=== PATIENT | female | born 1940 | race Caucasian/White ===

== ENCOUNTER 2017-04-07 21:15 | Emergency (ER) | payer MEDICARE ==
[~2017-04-07] VITALS: Ht 167.6 cm; Wt 62.9 kg
[~2017-04-07 21:15] MED LIST: ASPI81TA82 PO; CALC600T12 PO; CENTTAB9 PO; COZA50TA PO; CRAN500C2 PO; ESTR1 PO; FISH1360 PO; FLAX1200 PO; MACR100C PO; OCUTTAB2 PO; OXYBXL5 PO; PRIL20CA PO; PROB1TAB PO
[2017-04-07 21:20] VITALS: BP 183/79; PULSE 77; RESP 20; TEMP 97.7; O2SAT 97
[2017-04-07] MEDS ORDERED: OMEGCAP PO (21:39)
[2017-04-07] MEDS ORDERED: OCUVTAB PO (21:39)
[2017-04-07] MEDS ORDERED: OXYB5TAB8 PO (21:39)
[2017-04-07] MEDS ORDERED: CRANCAP2 PO (21:39)
[2017-04-07] MEDS ORDERED: ESTR1 PO (21:39)
[2017-04-07] MEDS ORDERED: OMEP20TA93 PO (21:39)
[2017-04-07] MEDS ORDERED: LOSA50TA PO (21:39)
[2017-04-07] MEDS ORDERED: ACET-822 PO (21:39)
[2017-04-07] MEDS ORDERED: ESCI5TAB PO (21:39)
[2017-04-07] MEDS ORDERED: ASPI81CH6 CHEW (21:39)
[2017-04-07] MEDS ORDERED: HYDR50TA94 PO (22:13)
[2017-04-07] MEDS ORDERED: IBUP1TAB7 PO (22:13)
--- NOTE | 2017-04-07 22:23 | PD ---
HPI . Fire ant bites Chief Complaint: Bite or Sting Time Seen by Provider: 22:10 Travel History International Travel<30 days: No Contact w/Intl Traveler<30days: No Traveled to known affect area: No History of Present Illness HPI Patient presents with chief complaint fire ant bites. She was bitten yesterday. The bites are on her right foot and ankle. She treated it at home last night with topical Benadryl and ibuprofen. She has also used ice. Despite that, she has continued itching and swelling. 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) Cardiovascular Problems: No High Cholesterol: No Chest Pain: No Diabetes: No Diminished Hearing: No Endocrine: No GERD: Yes Genitourinary: Yes Hepatitis: No Hiatal Hernia: No Hypertension: Yes Immune Disorder: No Medical other: Yes (ARTHRITIS) Musculoskeletal: Yes (compressed discs) Neurologic: No Psychiatric: No Reproductive: Yes (hysterectomy because of bleeding) Respiratory: No Immunizations Current: Yes Thyroid Disease: No Tetanus Vaccination: Unknown Influenza Vaccination: Yes ?: Not Menopausal: Yes Past Surgical History Abdominal Surgery: Yes (HERNIA REPAIR) Eye Surgery: Yes Genitourinary Surgery: Yes (BLADDER SUSPENSION 1973) Hysterectomy: Yes (FEB 2012) Oral Surgery: Yes Pacemaker: No Thoracic Surgery: Yes (RIGHT BREAST TUMOR REMOVED, BEGNI) Tonsillectomy: Yes Other Surgery: Yes (TUMOR RIGHT BREAST 1956 BENIGN, SKIN CA SQUAMOUS 2006) Social History Alcohol Use: Yes (2 DLY) Tobacco Use: No Substance Use: No Allergies-Medications (Allergen,Severity, Reaction): Coded Allergies: Sulfa (Sulfonamide Antibiotics) (Unverified Allergy, Severe, RASH, 04/07/17 ) ciprofloxacin (Unverified Allergy, Severe, Anaphylaxis, 04/07/17) amoxicillin (Verified Allergy, Unknown, ITCHING, 04/07/17) Reported Meds & Prescriptions Reported Meds & Active Scripts Active Ibuprofen 800 Mg Tab 800 Mg PO Q8H PRN Hydroxyzine HCl 50 Mg Tab 50 Mg PO QID PRN Reported Carmi-3 Fish Oil/Vitamin (Fish Oil-Cholecalciferol) 1,000-1,000 Mg Cap 1 Cap PO DAILY Aspirin Low Dose (Aspirin) 81 Mg Chew 81 Mg CHEW DAILY Cranberry Urinary Comfort (Vitamins C & E) 1 Cap 1 Cap PO DAILY Escitalopram (Escitalopram Oxalate) 5 Mg Tab 5 Mg PO DAILY Tylenol Extra Strength (Acetaminophen) 500 Mg Tablet 1 Tab PO PRN Omeprazole 20 Mg Tab 20 Mg PO DAILY Ocuvite (Multiple Vitamins W/ Minerals) 1 Tab 1 Tab PO DAILY Ditropan (Oxybutynin Chloride) 5 Mg Tab 5 Mg PO Q12HR Losartan (Losartan Potassium) 50 Mg Tab 50 Mg PO DAILY Estrace (Estradiol) 1 Mg Tab 1 Mg PO DAILY Review of Systems Except as stated in HPI: all other systems reviewed are Neg Skin: Positive Rash, Positive Itching Physical Exam Narrative GENERAL: Awake and alert and in no acute distress. SKIN: Warm and dry. She has erythematous lesions on her right foot and lower leg compatible with an bites. She does have some diffuse swelling of her lower leg. HEAD: Normocephalic/atraumatic. EYES: Pupils are equal. Extraocular movements are intact. NECK: Normal range of motion. CARDIOVASCULAR: Regular rate and rhythm. RESPIRATORY: Nonlabored respirations. MUSCULOSKELETAL: Atraumatic. NEUROLOGICAL: Nonfocal. PSYCHIATRIC: Appropriate mood and affect. Data Data Last Documented VS Vital Signs Date Time Temp Pulse Resp B/P (MAP) Pulse Ox O2 Delivery O2 Flow Rate FiO2 04/07/17 21:29 (113) 04/07/17 21:20 97.7 77 20 97 Orders Orders Ed Discharge Order (04/07/17 22:13) Hydroxyzine Hcl (Atarax) (04/07/17 22:30) Ibuprofen (Motrin) (04/07/17 22:30) MDM Medical Decision Making Medical Screen Exam Complete: Yes Emergency Medical Condition: Yes Differential Diagnosis Differential diagnosis of insect bites includes but is not limited to local reaction, localized allergic reaction, systemic allergic reaction, cellulitis Narrative Course This patient presents with swelling and itching of her right ankle and foot secondary to bites which occurred yesterday. I have ordered ibuprofen and Atarax for her. Diagnosis Primary Impression: Fire ant bite Qualified Codes: T63.421A - Toxic effect of venom of ants, accidental ( unintentional), initial encounter Referrals: Justen Schaffer MD (PCP) call for appointment Patient Instructions: General Instructions, Insect Bite or Sting (ED) Departure Forms: Tests/Procedures Scripts Ibuprofen (Ibuprofen) 800 Mg Tab 800 MG PO Q8H Y for Pain/Inflammation, #60 TAB 0 Refills Prov: Roula Lobato MD 04/07/17 Hydroxyzine HCl (Hydroxyzine HCl) 50 Mg Tab 50 MG PO QID Y for itching, #30 TAB 0 Refills Prov: Roula Lobato MD 04/07/17 Disposition: 01 DISCHARGE HOME Condition: Stable Roula Lobato MD Apr 07, 2017 22:23
[2017-04-07] MEDS ORDERED: IBUPROFEN 800 MG TAB PO ONE (22:30)
[2017-04-07] MEDS ORDERED: hydrOXYzine HCL 50 MG TAB PO ONE (22:30)
== END 2017-04-07 22:30 | disposition home or self-care (01) ==
LOC: PHEFT 21:15
DX: T63.421A Toxic effect of venom of ants, accidental (unintentional), initial encounter (principal); I10 Essential (primary) hypertension
CPT/HCPCS: 99283